=== PATIENT | male | born 1955 | race Caucasian/White ===

== ENCOUNTER 2025-02-15 15:14 | Outpatient (CLI) | payer MEDICARE, OTHER, SELFPAY ==
--- OUTSIDE RECORDS SUMMARY | 2025-02-15 09:50 | XMS_ITS | Encounter Summary ---
Author Organization [facility] Healthcare Address [address] [place] [address] Care Team Providers Care Cook Seafood Name Role Phone Kim Mendoza DPT Unavailable [phone] Iglesia Harrell MD Primary Care Provide r Jossie Brown MD Primary Care Provider [phone] Tara Sanchez NP Primary Care Provider [phone] Encounter Details Date Type Department Care Team (Late st Contact Info) Description 03/08/2019 [address]ation [facility] Case Management [address] [place] [address] Georgina Shaw RN Social History Tobacco Use Types Packs/Day Years Used Date Smoking Tobacco: Never Smokeless Tobacco: Never Alcohol Use Standard Drinks/Week Comments No 0 (1 standard drink = 0.6 oz pur e alcohol) Sex and Gender Information Value Date Recorded Sex Assigned at Not on file 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 Author CCM Chronic Pain Care Plan Chronic Care Management No Sherry Mcgregor RN Note: Problem: Chronic Pain Goals: 1. Minimize further functional decline 2. Maximize quality of life 3. Control pain Strategies: - Activity/exercise program recommendation - Conservative stepwise pain medicine strategy with multi-disciplinary approach - Recommend healthy lifestyle strategies and compensatory methods as needed Reduce the likelihood of falling Lifestyle No Sherry Mcgregor, RN Note: Below are four things you can do to prevent falls: 1. Begin an exercise program to improve your leg strength & balance 2. Ask your doctor or pharmacist to review your medicines 3. Get annual eye check-ups & update your eyeglasses 4. Make your home safer by: Removing clutter & tripping hazards Putting railings on all stairs & adding grab bars in the bathroom Having good lighting, especially on stairs Contact your local community or [facility] for information on exercise, fall prevention programs, or options for improving home safety. documented as of this encounter Visit Diagnoses Not on filedocumented in this encounter Care Teams Cook Seafood Relationship Specialty Start Date End Date Iglesia Harrell MD [address] [place] [address] PCP - General Emergency Medicine 09/21/18 11/29/19 Jossie Brown MD [address] [facility] [address] [place] [address] PCP - General Family Medicine 11/30/19 02/13/25 Tara Sanchez NP [address] [address] PCP - General Family Medicine 02/14/25 Kim Mendoza DPT [address] [id number] [address] [place] [address] Fellow Physical Therapy 05/08/18 documented as of this encounter
--- OUTSIDE RECORDS SUMMARY | 2025-02-15 09:50 | XMS_ITS | Clinical Summary ---
Author Organization [facility] Address [facility] [place] [address] Care Team Providers Care Slitting Machine Operator Helper Name Role Phone Jossie Brown MD Primary Care Provider [phone] Clark Cruz MD Unavailable [phone] Allergies Active Allergy Reactions Criticality Noted Date Comments Alfuzosin Shortness of Breath High 04/27/2018 Doxazosin Shortness of Breath High 04/17/2018 Finasteride Shortness of Breath High 05/01/2018 Nasal congestion, heart palpitations Meperidine Other (see comment) High 06/08/2020 Reaction: Blood pressure Sulfa Antibiotics Shortness of Breath High 8 Flomax Medications temazepam 30 MG capsuleIndicat ions:Insomnia Take 30 mg by mouth daily. Indications: Trouble Sleeping 0 Active cholecalcifero l (VITAMIN D-[address]) 25 MCG (1000 UT) Tab tabletIndicati ons:Vitamin D Deficiency Take 1,000 Units by mouth daily. Indications: Vitamin D Deficiency 0 Active docusate sodium 100 MG capsuleIndicat ions:Constipat ion Take 100 mg by mouth 2 (two) times daily as needed for Constipation. Indications: Constipation 9 Active aspirin 81 MG chewable tablet [The details of the medication are not available because there are pending changes by a home health clinician.] 90 tablet 1 0 Active Additional Information Patient taking differently:81 mg Oral Daily,Indications: Anticoagulant Therapy, Reported on 06/19/2020 traMADol 50 MG tabletIndicati ons:Chronic Pain Take 1 tablet (50 mg total) by mouth every 6 (six) hours as needed for Pain. Indications: Chronic Pain 60 tablet 0 Active amitriptyline 25 MG tabletIndicati ons:Neuralgia Take 1 tablet (25 mg total) by mouth nightly at bedtime. Indications: Nerve Pain 0 Active famotidine 10 MG tabletIndicati ons:gerd Take 1 tablet (10 mg total) by mouth 2 (two) times daily. Indications: gerd 30 tablet 0 Active clopidogrel 75 MG tablet Take 1 tablet (75 mg total) by mouth daily. 90 tablet 3 0 Active metoprolol succinate ER 25 MG 24 hr tablet Take 1 tablet (25 mg total) by mouth daily. 90 tablet 3 0 Active pravastatin 10 MG tablet Take 1 tablet (10 mg total) by mouth nightly at bedtime. 90 tablet 3 0 Active Active Problems Problem Noted Date Diagnosed Date STEMI (ST elevation myocardi al infarction) ([facility]) 06/08/2020 STEMI involving right coronary artery ([facility]) 06/08/2020 Epididymoorchitis 03/13/2019 H/O urethral stricture 02/12/2019 Overview (06/08/2020): Added automatically from request for surgery [id number] Prostatitis 02/12/2019 Overview (06/08/2020): Added automatically from request for surgery [id number] Non-recurrent bilateral ingu inal hernia without obstruction or gangrene 04/08/2018 Acute renal failure 09/29/2017 Other hyperlipidemia 09/29/2017 Overview (06/08/2020): Converted unresolved ICD9, potential mismatch. Increased frequency of urination 10/29/2016 Family History Medical History Relation Comments Heart Attack Father Heart Disease Mother Relation Status Comments Father Mother Social History Tobacco Use Types Packs/Day Years Used Date Smoking Tobacco: Never Smokeless Tobacco: Never Alcohol Use Standard Drinks/Week Comments Never 0 (1 standard drink = 0.6 oz pur e alcohol) AUDIT-C Answer Date Recorded Frequency of Alcohol Consumption Never 06/08/2020 Average Number of Drinks Not on file 020 Frequency of Binge Drinking Not on file 05/18 Sex and Gender Information Value Date Recorded Sex Assigned at Not on file Legal Sex Male 1:49 PM CDT Gender Identity Not on file Sexual Orientation Not on file Last Filed Vital Signs Vital Sign Reading Time Taken Comments Blood Pressure 136/84 07/20/2020 11:53 AM CDT Pulse 78 07/20/2020 11:53 AM CDT Temperature 36.3 C (97.4 F) 07/04/2020 10:00 AM CDT Respiratory Rate 18 07/12/2020 11:46 AM CDT Oxygen Saturation 98% 07/20/2020 11:53 AM CDT Inhaled Oxygen Concentration - - Weight 79.8 kg (176 lb) 07/20/2020 11:53 AM CDT Height 180.3 cm (5' 11 ) 07/20/2020 11:53 AM CDT Body Mass Index 24.55 07/20/2020 11:53 AM CDT Plan of Treatment Health Maintenance Due Date Last Done Comments ASCVD Statin 1954 Colorectal Cancer Screening Colonoscopy (10 Years) 1954 Pneumococcal Vaccine: 65+ Ye ars (1 of 2 - PCV) 1960 Hepatitis C 1972 DTaP, Tdap and Td Vaccines ( 1 - Tdap) 1973 Zoster Vaccines (1 of 2) 2004 RSV Immunization or 60+ Years (1 - Risk 60-74 years 1-dose series) 2014 Annual Medicare Wellness Visit 2019 ASCVD LDL 06/09/2021 06/09/2020 COVID-19 Vaccine (1 - 2023-2 5 season) 2024 Influenza Adult (#1) 2024 08/17/2019 Meningococcal B Vaccine Aged Out No l onger eligible based on patient's age to complete this topic Meningococcal Vaccine Aged Out No lexie robel eligible based on patient's age to complete this topic RSV Immunizations Under 20 Months Aged Out No longer eligible based on patient's age to complete this topic Medical Devices Implanted Type Area Batch Analyst Device Identifier Shelf Expiration Date Model / Serial / Lot Wire Sut 18in Myowr2 7;.5 [place]; Ccs-1 Mfil; Cnv - [id number] Implanted:Qty: 1 on 06/14/2020 by Bobby Gonzalez RNFA at [facility] Wire N/A: Sternum [employer] 11/17/2024 [id number] / / [id number] Description:1 WIRE USED Suture Sternotomy Kit - [id number] Implanted:Qty: 1 on 06/14/2020 by Bobby Gonzalez RNFA at [facility] Wire N/A: Sternum [employer] 08/17/2024 [id number] / / [id number] Description:6 WIRES USED Procedures Procedure Name Priority Date/Time Associated Diagnosis Comments LIPID PANEL Routine 06/09/2020 5:55 AM CDT from Last 3 Months or Most Recently Relevant to Health Maintenance Results * (ABNORMAL) LIPID PANEL (06/09/2020 5:55 AM CDT) CHOLESTEROL 193 <200 MG/DL 06/09/2020 6:37 AM CDT [facility] TRIGLYCERIDES 145 <150 MG/DL 06/09/2020 6:37 AM CDT [facility] HDL 34(L) >40.0 MG/DL 06/09/2020 6:37 AM CDT [facility] LDL (CALCULATED) 130(H) <100 MG/DL 06/09/2020 6:37 AM CDT [facility] NON HDL CHOLESTEROL 159(H) <130 MG/DL 06/09/2020 6:37 AM CDT [facility] CHOL/HDL RATIO 5.7(H) 0.0 - 4.5 06/09/2020 6:37 AM CDT [facility] VLDL CALCULATION 29 5 - 55 MG/DL 06/09/2020 6:37 AM CDT [facility] LIPID INTERPRETATION 06/09/2020 6:37 AM T [facility] Comment: [facility] CONCENSUS REPORT RECOMMENDATIONS: ADULT CHILD LOW RISK: CHOLESTEROL <200 <170 TRIGLYCERIDE <150 --- HDL >=60 --- LDL <100 <110 BORDERLINE: CHOLESTEROL 200-239 170-199 TRIGLYCERIDE 150-199 --- HDL 40-59 --- LDL 100-159 110-129 HIGH RISK: CHOLESTEROL >=240 >=200 TRIGLYCERIDE >=200 --- HDL <40 --- LDL >=160 >=130 06/09/2020 5:55 AM CDT [place] Louis PA-C LABORATORY Final Result [facility] [address] [place] [address], from Last 3 Months or Most Recently Relevant to Health Maintenance Insurance MEDICARE GENERIC - COMMERCIAL on file MEDICARE Advance Directives Documents on File Type Date Recorded Patient Hop Picker Expl anation Advance Directives and Living Will 06/15/2020 7:09 AM 06-12-20 Signed POA f or Health Care * Full Code (Latest Code Status on File) Date Activated Date Inactivated Comments 06/19/2020 3:25 PM * Full Code Date Activated Date Inactivated Comments 06/08/2020 12:47 PM 06/18/2020 1:07 PM Care Teams Slitting Machine Operator Helper Relationship Specialty Start Date End Date Jossie Brown MD [address] [place] [id number] PCP - General FAMILY PRACTICE 07/18/20 Clark Cruz MD [address] [address] Consulting Physician INTERVENTIONAL CARDIOLOGY 07/18/20
--- OUTSIDE RECORDS SUMMARY | 2025-02-15 09:50 | XMS_ITS | Encounter Summary ---
Author Organization [facility] Healthcare Address [address] [place] [address] Care Team Providers Care Flower Grader Name Role Phone Kim Mendoza DPT Unavailable [phone] Traa Sanchez NP Primary Care Provider [phone] Reason for Visit * Reason Comments Follow-up 6 mo f/u Hypertension Bradycardia Encounter Details Date Type Department Care Team (Late st Contact Info) Description 02/14/2025 10:30 AM CDT Office Visit [facility] Cardiology [address] [place] [address] Martha Cooper MD [facility] [address] Hx of CABG (Primary Dx); Essential hypertension; Dyslipidemia Social History Tobacco Use Types Packs/Day Years Used Date Smoking Tobacco: Never Smokeless Tobacco: Never Alcohol Use Standard Drinks/Week Comments No 0 (1 standard drink = 0.6 oz pur e alcohol) Sex and Gender Information Value Date Recorded Sex Assigned at Not on file 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 Gender Identity Not on file Sexual Orientation Not on file documented as of this encounter Last Filed Vital Signs Vital Sign Reading Time Taken Comments Blood Pressure 118/74 02/14/2025 10:44 AM CDT Pulse 60 02/14/2025 10:44 AM CDT Temperature - - Respiratory Rate - - Oxygen Saturation 97% 02/14/2025 10:44 AM CDT Inhaled Oxygen Concentration - - Weight 87.2 kg (192 lb 4.8 oz) 02/14/2025 10:44 AM CDT Height 180.3 cm (5' 11 ) 02/14/2025 10:44 AM CDT Body Mass Index 26.82 02/14/2025 10:44 AM CDT documented in this encounter Progress Notes * Martha Cooper MD - 02/14/2025 10:30 AM CDT [facility] DATE OF VISIT: 02/14/2025 CHIEF COMPLAINT Chief Complaint Patient presents with Follow-up 6 mo f/u Hypertension Bradycardia HPI Rashaad Santoyo is a 69 y.o. male with past medical history of STEMI 2019 and presented to [facility] andwas found to have severe multivessel coronary disease involving LAD, RCA and left circumflex artery. He had CABGx5 2019 at [facility] with ANTOINE to mid LAD, SVG to distal RCA, SVG to D1, SVG to OM1 and left radial artery to distal left circumflex artery by Dr. Tino Mims. Also history of hypertension, hyperlipidemia, CKD. He does have history of chronic prostatitis with pelvic floor dysfunction. Comes to establish care. He moved from [place] to here. Denies chest pain, shortness of breath, lowerextremity edema, palpitations dizziness or syncope. Never smoked cigarettes and does not drink alcohol. He used to follow up with his fashion photographer in [place] every 6 months. He does go to the gym frequently 4 to 5 times a week. He states I can do a lot of work without any symptoms. 02/14/2025-returns for follow-up appointment. Denies chest pain, shortness of breath, palpitations,dizziness, syncope, lower extremity edema. He has been physically active doing housework. He statesthat he is very active. And he states that he feels very well. MEDICAL HISTORY Past Medical History: Diagnosis Date BPH (benign prostatic hyperplasia) Bradycardia Coronary artery disease Inguinal hernia Personal history of other endocrine, nutritional and metabolic disease History of hypercholesterolemia - (Added by TW Conv) PONV (postoperative nausea and vomiting) Prostatitis Prostatitis 02/12/2019 Added automatically from request for surgery [id number] Urinary frequency Past Surgical History: Procedure Laterality Date CARPAL TUNNEL RELEASE Bilateral 1998 X2 COLONOSCOPY KNEE ARTHROSCOPY X2 SC TRURL ELECTROSURG RESCJ PROSTATE BLEED COMPLETE 2014 Transurethral Resection Of Prostate (TURP) - (Added by TW Conv) TRANSURETHRAL RESECTION OF PROSTATE 2017 Social History Tobacco Use Smoking status: Never Smokeless tobacco: Never Substance and Sexual Activity Drug use: No Sexual activity: None Alcohol Use: Not At Risk (06/08/2020) Received from [facility] AUDIT-C Frequency of Alcohol Consumption: Never Average Number of Drinks: Not on file Frequency of Binge Drinking: Not on file Family History Problem Relation Age of Onset Heart attack Mother Heart attack Father MEDICATIONS Current Outpatient Medications Medication Sig Dispense Refill amitriptyline (ELAVIL) 10 mg tablet TAKE 1 TABLET BY MOUTH NIGHTLY 30 tablet 2 amitriptyline (ELAVIL) 25 mg tablet Take 1 tablet (25 mg total) by mouth nightly 30 tablet 2 cholecalciferol (VITAMIN D-3) 1,000 unit tablet Take 1,000 Units by mouth every morning clopidogreL (PLAVIX) 75 mg tablet Take 75 mg by mouth daily diazePAM (VALIUM) 10 mg tablet COMPOUND INTO VALIUM 10 MG RECTAL SUPPOSITORY, ADD IN PREDNISONE 5 MG INTO THE SAME RECTAL SUPPOSITORY, USE ONE SUPPOSITORY AT BEDTIME 30 tablet 0 docusate sodium (COLACE) 100 mg capsule Take 1 capsule (100 mg total) by mouth 2 (two) times a day as needed for constipation 60 capsule 0 famotidine (PEPCID) 20 mg tablet Take 20 mg by mouth daily methocarbamoL (ROBAXIN) 500 mg tablet BID/PRN, take in morning and afternoon (do not take after 5 PM) (Patient not taking: Reported on 08/10/2020) 60 tablet 1 metoprolol XL (TOPROL-XL) 25 mg extended release tablet Take 25 mg by mouth daily omeprazole (PriLOSEC) 20 mg capsule Take 20 mg by mouth every morning oxyCODONE (ROXICODONE) 5 mg immediate release tablet Take 1 tablet (5 mg total) by mouth every 4 (four) hours as needed for pain (Patient not taking: Reported on 10/28/2019) 10 tablet 0 pravastatin (PRAVACHOL) 10 mg tablet Take 10 mg by mouth nightly at bedtime. predniSONE (DELTASONE) 5 mg tablet COMPOUND INTO PREDNISONE 5 MG RECTAL SUPPOSITORY, ADD IN VALIUM 10 MG INTO THE SAME SUPPOSITORY, USE ONE RECTAL SUPPOSITORY PER NIGHT (Patient not taking: Reported on 08/10/2020) 30 tablet 0 temazepam (RESTORIL) 30 mg capsule Take by mouth daily traMADoL (ULTRAM) 50 mg tablet Take 1 tablet (50 mg total) by mouth 4 (four) times a day as needed for pain 120 tablet 0 No current facility-administered medications for this visit. ALLERGIES Allergies Allergen Reactions Alfuzosin Shortness of breath Doxazosin Shortness of breath Finasteride Shortness of breath Nasal congestion, heart palpitations Meperidine Hypotension Reaction: Blood pressure Sulfa (Sulfonamide Antibiotics) Shortness of breath Flomax REVIEW OF SYSTEMS Review of Systems Constitutional: Negative for chills, fever and malaise/fatigue. HENT: Negative for congestion and sore throat. Eyes: Negative for blurred vision and double vision. Cardiovascular: Negative for chest pain, claudication, dyspnea on exertion, leg swelling, near-syncope, orthopnea, palpitations, paroxysmal nocturnal dyspnea and syncope. Respiratory: Negative for cough, hemoptysis, shortness of breath, snoring, sputum production and wheezing. Endocrine: Negative for cold intolerance and polyuria. Hematologic/Lymphatic: Negative for bleeding problem. Does not bruise/bleed easily. Skin: Negative for itching and rash. Musculoskeletal: Negative for back pain, joint pain and joint swelling. Gastrointestinal: Negative for abdominal pain, diarrhea, nausea and vomiting. Genitourinary: Negative for dysuria, frequency and hematuria. Neurological: Negative for focal weakness, headaches and light-headedness. Psychiatric/Behavioral: Negative for depression. The patient is not nervous/anxious. Allergic/Immunologic: Negative for environmental allergies and hives. PHYSICAL EXAM Vitals BP 118/74 (BP Location: Left arm, Patient Position: Sitting) Pulse 60 Ht 180.3 cm (5' 11 ) Wt 87.2 kg (192 lb 4.8 oz) SpO2 97% BMI 26.82 kg/m?? Body mass index is 26.82 kg/m??. Physical Exam Constitutional: General: He is not in acute distress. Appearance: He is well-developed. HENT: Head: Normocephalic and atraumatic. Right Ear: External ear normal. Left Ear: External ear normal. Eyes: General: No scleral icterus. Left eye: No discharge. Conjunctiva/sclera: Conjunctivae normal. Neck: Thyroid: No thyromegaly. Cardiovascular: Rate and Rhythm: Normal rate and regular rhythm. Heart sounds: Normal heart sounds. No murmur heard. No friction rub. No gallop. Pulmonary: Effort: Pulmonary effort is normal. No respiratory distress. Breath sounds: Normal breath sounds. No wheezing or rales. Chest: Chest wall: No tenderness. Abdominal: General: There is no distension. Palpations: Abdomen is soft. Tenderness: There is no abdominal tenderness. Musculoskeletal: General: No tenderness or deformity. Cervical back: Normal range of motion and neck supple. Right lower leg: No edema. Left lower leg: No edema. Skin: General: Skin is warm. Findings: No erythema or rash. Neurological: Mental Status: He is alert and oriented to person, place, and time. Motor: No abnormal muscle tone. Psychiatric: Mood and Affect: Mood normal. LABS AND OTHER DIAGNOSTIC TESTS Lab Results Component Value Date WBC 11.8 (H) 08/30/2019 HGB 12.9 (L) 08/30/2019 HCT 38.6 (L) 08/30/2019 MCV 90.8 08/30/2019 Chemistry Component Value Date/Time SODIUM 137 08/30/2019 2327 POTASSIUM 4.3 08/30/2019 2327 CHLORIDE 105 08/30/2019 2327 CO2 24 08/30/2019 2327 BUNSER 17 08/30/2019 2327 CREATININE 1.33 (H) 08/30/2019 2327 GLUCOSE 172 08/30/2019 2327 Component Value Date/Time CALCIUM 8.4 (L) 08/30/2019 2327 ALKPHOS 100 07/22/2017 1149 AST 24 07/22/2017 1149 ALT 26 07/22/2017 1149 BILITOT 0.3 07/22/2017 1149 No results found for: CHOL No results found for: HDL No results found for: LDLCALC No results found for: TRIG No results found for: CHOLHDL Cardiac catheterization at [facility] 2019 severe multivessel coronary artery disease involving LAD, left circumflex artery and right coronary artery. EKG August 16, 2024 sinus rhythm, left axis deviation, septal Q-waves, poor R-wave progression, LVH, ST T changes that could represent strain pattern from LVH or ischemia Echo at [facility] 2019 ejection fraction 50-55%, hypokinetic anterior, anteroseptal, inferoseptal, inferior cueto. Echo August 2024.Normal left ventricular systolic function. No focal wall motion abnormalities. Normal left ventricular size. Mild concentric left ventricular hypertrophy. Impaired diastolic relaxation Grade I. Ejection fraction is measured at 62 %. Global Longitudinal Strain is -18 %. GLS is borderline. Mild mitral valve regurgitation. No evidence of hemodynamically significant aortic stenosis by Doppler. Aortic cusps appear mildly sclerotic. Trileaflet aortic valve. Trace aortic valve regurgitation. Estimated peak RVSP is 29 mmHg. Mild tricuspid regurgitation. ASSESSMENT Diagnoses and all orders for this visit: Hx of CABG (Primary) Essential hypertension Dyslipidemia PLAN/RECOMMENDATIONS In regards to history of CABG 2020 at [facility] with ANTOINE to mid LAD,SVG to distal RCA, SVG to D1, SVG to OM1 and left radial artery to distal left circumflex artery. Overall he is doing very well. Denies any anginal symptoms. Continue aspirin. Continue Repatha. Echo done August 2024 shows normal LV systolic function. In regards to hypertension, blood pressure is controlled today 118/74.. Continue metoprolol, amlodipine. In regards to hyperlipidemia lipid panel done today February 14, 2025 LDL 26, HDL 27 triglycerides 153. and total cholesterol less than 100. Continue Repatha. Follow up in the office in in 6 months. Martha Cooper MD documented in this encounter Miscellaneous Notes * Addendum Note - Ashley Ac MA - 02/14/2025 10:30 AM CDTAddended by: ASHLEY AC on: 02/14/2025 12:03 PM Modules accepted: Orders documented in this encounter Plan of Treatment Not on file documented as of this encounter Goals Goal Patient Goal Type Associated Problems Recent Progress Patient-Stated? Author CCM Chronic Pain Care Plan Chronic Care Management No Sherry Mcgregor, RN Note: Problem: Chronic Pain Goals: 1. [...] on stairs Contact your local community or [facility] for information on exercise, fall prevention programs, or options for improving home safety. documented as of this encounter Procedures Procedure Name Priority Date/Time Associated Diagnosis Comments POCT LIPID PANEL Routine 02/14/2025 12:0 2 PM CDT Dyslipidemia documented in this encounter Results * POCT lipid panel (02/14/2025 12:02 PM CDT) Cholesterol, POC 104 mg/dL Comment:GLU = 155 HDL, POC 27 mg/dL Triglycerides, POC 253 mg/dL LDL Cholesterol POC 26 mg/dL Chol/HDL Ratio, POC 1.0 Non-HDL Cholesterol, POC 77 mg/dL Cholesterol Total, POC 104 mg/dL Capillary blood 02/14/2025 1 2:02 PM CDT Martha Cooper MD POINT OF CARE TEST O RDERABLES Final Result documented in this encounter Visit Diagnoses Diagnosis Hx of CABG- Primary Postsurgical aortocoronary bypass status Essential hypertension Unspecified essential hypertension Dyslipidemia Other and unspecified hyperlipidemia documented in this encounter Care Teams Flower Grader Relationship Specialty Start Date End Date Tara Sanchez NP [address] [address] PCP - General Family Medicine 02/14/25 Kim Mendoza DPT [address] [facility] [address] [place] [address] Fellow Physical Therapy 05/08/18 documented as of this encounter
--- OUTSIDE RECORDS SUMMARY | 2025-02-15 09:51 | XMS_ITS | Clinical Summary ---
Author Organization [facility] Address [address] [place] [address] Care Team Providers Care Filtration Plant Mechanic Name Role Phone Kim Mendoza DPT Unavailable [phone] Tara Sanchez NP Primary Care Provider [phone] Allergies Active Allergy Reactions Criticality Noted Date Comments Alfuzosin Shortness of breath High 04/27/2018 Doxazosin Shortness of breath High 04/17/2018 Finasteride Shortness of breath High 05/01/2018 Nasal congestion, heart palpitations Meperidine Hypotension High Reaction: Blood pressure Sulfa (Sulfonamide Antibiotics) Shortness of breath High 04/17/2018 Flomax Medications cholecalciferol (VITAMIN D-3) 1,000 unit tabletIndicatio ns:Vitamin D Deficiency Take 1 tablet (1,000 Units total) by mouth every morning Active temazepam (RESTORIL) 30 mg capsule Take by mouth daily 01/17/2020 Active metoprolol tartrate (LOPRESSOR) 50 mg immediate release tablet Take 1 tablet (50 mg total) by mouth 2 (two) times a day Active amLODIPine (NORVASC) 2.5 mg tablet Take 1 tablet (2.5 mg total) by mouth daily 07/27/2024 Active psyllium 0.52 gram capsule Take 1 capsule (0.52 g total) by mouth daily Active vit A/C/E ac/ZnOx/cupric oxide (EYE VITAMIN AND MINERALS ORAL) Take by mouth A ctive Repatha SureClick 140 mg/mL pen injector INJECT THE CONTENTS OF ONE PEN UNDER THE SKIN EVERY 2 WEEKS 07/20/2024 Active aspirin 81 mg enteric coated tablet Take 1 tablet (81 mg total) by mouth daily Active Active Problems Problem Noted Date Diagnosed Date Hx of CABG 08/16/2024 Essential hypertension 08/16/2024 Dyslipidemia 08/16/2024 Other anterior urethral stricture, male, anterio r 07/28/2019 Overview (07/28/2019): Added automatically from request for surgery [id number] Epididymoorchitis 03/13/2019 H/O: urethral stricture 02/24/2019 Overview (02/24/2019): Added automatically from request for surgery [id number] H/O urethral stricture 02/12/2019 Overview (02/12/2019): Added automatically from request for surgery [id number] Prostatitis 02/12/2019 Overview (02/12/2019): Added automatically from request for surgery [id number] Non-recurrent bilateral ingu inal hernia without obstruction or gangrene 04/08/2018 Increased frequency of urination 10/29/2016 Encounters Date Type Department Care Team Description 02/14/2025 10:30 AM CDT Office Visit [facility] Cardiology [address] [place] [address] Martha Cooper MD Hx of CABG (Primary Dx); Essential hypertension; Dyslipidemia from Last 3 Months Immunizations Immunization Administration Dates Next Due Influenza, Unspecified 08/17/2019 Surgical History Surgery Date Site/Laterality Comments DE TRURL ELECTROSURG RESCJ PROSTATE BLEED COMPLETE 11/17/2014 - 11/16/2015 Transurethral Resection Of Prostate (TURP) - (Added by TW Conv) TRANSURETHRAL RESECTION OF PROSTATE 11/17/2016 - 11/16/2017 CARPAL TUNNEL RELEASE 11/17/1998 - 11/16/1999 Bilateral X2 KNEE ARTHROSCOPY X2 COLONOSCOPY Medical History Medical History Date Comments Personal history of other endocrine, nutritional and metabolic disease History of hypercholesterole kizzy - (Added by TW Conv) Urinary frequency Prostatitis Inguinal hernia PONV (postoperative nausea a nd vomiting) BPH (benign prostatic hyperplasia) Prostatitis 02/12/2019 Added automatica lly from request for surgery [id number] Coronary artery disease Bradycardia Family History Medical History Relation Name Comments Heart attack Father Heart attack Mother Relation Name Status Comments Father Mother Social History Tobacco Use Types Packs/Day Years Used Date Smoking Tobacco: Never Smokeless Tobacco: Never Alcohol Use Standard Drinks/Week Comments No 0 (1 standard drink = 0.6 oz pur e alcohol) Sex and Gender Information Value Date Recorded Sex Assigned at Not on file Legal Sex Male 6:54 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 Gender Identity Not on file Sexual Orientation Not on file Obstetrics History Last Filed Vital Signs Vital Sign Reading Time Taken Comments Blood Pressure 118/74 02/14/2025 10:44 AM CDT Pulse 60 02/14/2025 10:44 AM CDT Temperature 37.1 C (98.8 F) 09/01/2019 7:49 AM CDT Respiratory Rate 18 09/01/2019 7:49 AM CDT Oxygen Saturation 97% 02/14/2025 10:44 AM CDT Inhaled Oxygen Concentration - - Weight 87.2 kg (192 lb 4.8 oz) 02/14/2025 10:44 AM CDT Height 180.3 cm (5' 11 ) 02/14/2025 10:44 AM CDT Body Mass Index 26.82 02/14/2025 10:44 AM CDT Plan of Treatment Health Maintenance Due Date Last Done Comments Colon Cancer Screening-Colonoscopy 1954 Depression Screening 1954 Hepatitis C Screening 1954 DTaP/Tdap/Td Vaccine (1 - Tdap) 1965 Hepatitis B Screening 1972 Pneumococcal vaccine 65+ (1 of 1 - PCV) 2004 Zoster Vaccine (1 of 2) 2004 Well Visit 65+ 2019 Fall Risk Assessment 01/21/2020 01/20/2019 Influenza Vaccine (#1) 2024 08/18/2020, 2018 Prostate Cancer Screening-PSA Discontinued , 07/23/2019, 04/16/2018 Goals Goal Patient Goal Type Associated Problems Recent Progress Patient-Stated? Author CCM Chronic Pain Care Plan Chronic Care Management Sherry Guy, RN Note: Problem: Chronic Pain Goals: 1. Minimize further functional decline 2. Maximize quality of life 3. Control pain Strategies: - Activity/exercise program recommendation - Conservative stepwise pain medicine strategy with multi-disciplinary approach - Recommend healthy lifestyle strategies and compensatory methods as needed Reduce the likelihood of falling Lifestyle Sherry Guy RN Note: Below are four things you [...] on stairs Contact your local community or [facility] for information on exercise, fall prevention programs, or options for improving home safety. Procedures Procedure Name Priority Date/Time Associated Diagnosis Comments POCT LIPID PANEL Routine 02/14/2025 12:0 2 PM CDT Dyslipidemia PSA SCREEN Routine 10/12/2019 11:00 AM SUPERVISOR 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 Screening PSA (prostate specific antigen) from Last 3 Months or Most Recently Relevant to Health Maintenance Results * POCT lipid panel (02/14/2025 12:02 PM CDT) Cholesterol, POC 104 mg/dL Comment:GLU = 155 HDL, POC 27 mg/dL Triglycerides, POC 253 mg/dL LDL Cholesterol POC 26 mg/dL Chol/HDL Ratio, POC 1.0 Non-HDL Cholesterol, POC 77 mg/dL Cholesterol Total, POC 104 mg/dL Capillary blood 02/14/2025 1 2:02 PM CDT us Martha Cooper MD POINT OF CARE TEST O RDERABLES Final Result * PSA screen (10/12/2019 11:00 AM SUPERVISOR 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) PSA-Total 0.35 <=5.40 ng/mL BHAKTI CONNER Comment: Interpretive Data AGE SEX REFERENCE INTERVAL 0 minutes-150 years Female None 0 minutes-49 years Male None 50-59 years Male 0-3.90 60-69 years Male 0-5.40 70-79 years Male 0-6.20 80-150 years Male 0-6.20 Current interpretive data last revised 2018. Testing performed by: [facility], [facility], [place]., [address] Blood specimen (specimen) 10/12/2019 11:00 AM SUPERVISOR 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 10/12/2019 11:49 AM SUPERVISOR 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 Lorene Lyon NP LAB BLOOD ORDERABLES Final Result BHAKTI [facility] [address] [facility]. [place] [address] from Last 3 Months or Most Recently Relevant to [place] [address] COMMERCIAL GENERIC MEDICARE [employer] [place] [id number] [employer] MEDICARE HMO Advance Directives For more information, please contact: [phone] * Full Code (Latest Code Status on File) Date Activated Date Inactivated Comments 08/30/2019 5:59 PM 09/01/2019 3:52 PM * Full Code Date Activated Date Inactivated Comments 03/11/2019 12:12 PM 03/13/2019 6:12 PM * Full Code Date Activated Date Inactivated Comments 03/05/2019 4:31 PM 03/06/2019 4:04 PM Care Teams Filtration Plant Mechanic Relationship Specialty Start Date End Date Tara Sanchez NP [address] [address] [place] [id number] PCP - General Family Medicine 02/14/25 Kim Mendoza DPT [address] [place] [address] Fellow Physical Therapy 05/08/18
--- OUTSIDE RECORDS SUMMARY | 2025-02-15 09:51 | XMS_ITS | Referral Summary ---
Author Organization [facility] Address [address] [place] [address] Care Team Providers Care Geophysical Operator Name Role Phone Kim Mendoza DPT Unavailable [phone] Tara Sanchez NP Primary Care Provider [phone] Encounters Date Type Department Care Team Description 02/14/2025 10:30 AM CDT Office Visit [facility] Medical Group Cardiology [address] [place] [address] Martha Cooper MD Hx of CABG (Primary Dx); Essential hypertension; Dyslipidemia from Last 3 Months Allergies Active Allergy Reactions Criticality Noted Date [...] (07/28/2019): Added automatically from request for surgery [id number] Epididymoorchitis 03/13/2019 H/O: urethral stricture 02/24/2019 Overview (02/24/2019): Added automatically from request for surgery [id number] H/O urethral stricture 02/12/2019 Overview (02/12/2019): Added automatically from request for surgery [id number] Prostatitis 02/12/2019 Overview (02/12/2019): Added automatically from request for surgery [id number] Non-recurrent bilateral ingu inal hernia without obstruction or gangrene 04/08/2018 Increased frequency of urination 10/29/2016 Immunizations Immunization Administration Dates Next Due Influenza, Unspecified 08/17/2019 Social History Tobacco Use Types Packs/Day Years Used Date Smoking Tobacco: Never Smokeless Tobacco: Never Alcohol Use Standard Drinks/Week Comments No 0 (1 standard drink = 0.6 oz pur e alcohol) Sex and Gender Information Value Date Recorded Sex Assigned at Not on file Legal Sex Male 6:54 PM CLINICAL SERVICES MANAGER Gender Identity Not on file Sexual Orientation [...] 02/14/2025 10:44 AM CDT Plan of Treatment Not on file Goals Goal Patient Goal Type Associated Problems [...] Reduce the likelihood of falling Lifestyle Sherry Guy, RN Note: Below are four things you [...] on stairs Contact your local community or senior center for information on exercise, fall prevention programs, or options for improving home safety. Procedures Procedure Name Priority Date/Time Associated Diagnosis Comments POCT LIPID PANEL Routine 02/14/2025 12:0 2 PM CDT Dyslipidemia PSA SCREEN Routine 10/12/2019 11:00 AM CLINICAL SERVICES MANAGER Screening PSA (prostate specific antigen) from Last [...] Result * PSA screen (10/12/2019 11:00 AM CLINICAL SERVICES MANAGER) PSA-Total 0.35 <=5.40 ng/mL BHAKTI GUZMANCH Comment: Interpretive Data AGE SEX REFERENCE INTERVAL 0 minutes-150 years Female None 0 minutes-49 years Male None 50-59 years Male 0-3.90 60-69 years Male 0-5.40 70-79 years Male 0-6.20 80-150 years Male 0-6.20 Current interpretive data last revised 2018. Testing performed by: [facility], [address] [place] [address]., [id number] Blood specimen (specimen) 10/12/2019 11:00 AM CLINICAL SERVICES MANAGER 10/12/2019 11:49 AM CLINICAL SERVICES MANAGER Lorene Lyon NP LAB BLOOD ORDERABLES Final Result [facility] [address] [facility]. Department [place] [address] from Last 3 Months or Most Recently Relevant to Health Maintenance Insurance [address] [place] [address] COMMERCIAL GENERIC MEDICARE [employer] [place] [facility] MEDICARE O Advance Directives For more information, please contact: [phone] * Full Code (Latest Code Status on File) Date Activated Date Inactivated Comments 08/30/2019 5:59 PM 09/01/2019 3:52 PM * Full Code Date Activated Date Inactivated Comments 03/11/2019 12:12 PM 03/13/2019 6:12 PM * Full Code Date Activated Date Inactivated Comments 03/05/2019 4:31 PM 03/06/2019 4:04 PM Care Teams Geophysical Operator Relationship Specialty Start Date End Date Tara Sanchez NP [address] [address] PCP - General Family Medicine 02/14/25 Kim Mendoza DPT [address] [place] [address] Fellow Physical Therapy 05/08/18
--- OUTSIDE RECORDS SUMMARY | 2025-02-15 09:51 | XMS_ITS | Encounter Summary ---
Author Organization [facility] Address [address] [place] [address] Phone Care Team Providers Care Field Geologist Name Role Phone Kim Mendoza DPT Unavailable [phone] Iglesia Harrell MD Primary Care Provide r Jossie Brown MD Primary Care Provider [phone] Tara Sanchez NP Primary Care Provider [phone] Encounter Details Date Type Department Care Team (Late st Contact Info) Description 05/03/2019 Telephone [facility] ([facility]) - [facility] Urology [address] [facility] Advanced Medicine [address]th [place] [address] [place] [address] Mayito Sanchez Social History Tobacco Use Types Packs/Day Years Used Date Smoking Tobacco: Never Smokeless Tobacco: Never Alcohol Use Standard Drinks/Week Comments No 0 (1 standard drink = 0.6 oz pur e alcohol) Sex and Gender Information Value Date Recorded Sex Assigned at Not on file Legal Sex Male 6:54 PM CROCHETER Gender Identity Not on file Sexual Orientation [...] on stairs Contact your local community or [facility] for information on exercise, fall prevention programs, or options for improving home safety. documented as of this encounter Visit Diagnoses Not on filedocumented in this encounter Care Teams Field Geologist Relationship Specialty Start Date End Date Iglesia Harrell MD [address] [place] [address] PCP - General Emergency Medicine 09/21/18 11/29/19 Jossie Brown MD [address] [address] PCP - General Family Medicine 11/30/19 02/13/25 Tara Sanchez NP [address] [address] PCP - General Family Medicine 02/14/25 Kim Mendoza DPT [address] [facility] [address] [place] [address] Fellow Physical Therapy 05/08/18 documented as of this encounter
--- OUTSIDE RECORDS SUMMARY | 2025-02-15 09:51 | XMS_ITS | Encounter Summary ---
Author Organization [facility] Address [address] [place] [address] Phone Care Team Providers Care Compliance Engineer Name Role Phone Kim Mendoza DPT Unavailable [phone] Iglesia Harrell MD Primary Care Provide r Jossie Brown MD Primary Care Provider Tara Sanchez NP Primary Care Provider [phone] Encounter Details Date Type Department Care Team (Late st Contact Info) Description 07/28/2019 Telephone [facility] ([facility]) - [facility] Urology [address] [facility] Advanced Medicine 11th [place] [address] [place] [address] Mayito Sanchez Social History Tobacco Use Types Packs/Day Years Used Date Smoking Tobacco: Never Smokeless Tobacco: Never Alcohol Use Standard Drinks/Week Comments No 0 (1 standard drink = 0.6 oz pur e alcohol) Sex and Gender Information Value Date Recorded Sex Assigned at Not on file Legal Sex Male 6:54 PM DIGITAL RECRUITER Gender Identity Not on file Sexual Orientation [...] on stairs Contact your local community or [facility] for information on exercise, fall prevention programs, or options for improving home safety. documented as of this encounter Visit Diagnoses Not on filedocumented in this encounter Care Teams Compliance Engineer Relationship Specialty Start Date End Date Iglesia Harrell MD [address] [place] [address] PCP - General Emergency Medicine 09/21/18 11/29/19 Jossie Brown MD [address] [facility] [address] [place] [address] PCP - General Family Medicine 11/30/19 02/13/25 Tara Sanchez NP [address] [address] PCP - General Family Medicine 02/14/25 Kim Mendoza DPT [address] [facility] [address] [place] [address] Fellow Physical Therapy 05/08/18 documented as of this encounter
--- OUTSIDE RECORDS SUMMARY | 2025-02-15 09:51 | XMS_ITS | Clinical Summary ---
Author Organization [facility] Address [address] [place] [address] Phone Care Team Providers Care Picu Nurse Name Role Phone Unavailable Primary Care Provider Unavailabl e Medications Medication Sig Dispensed Refills Start Date End Date Status amitriptyline (ELAVIL) 25 MG tablet 1 daily 0 10/14/2017 Active fluticasone (FLONASE) 50 MCG/ACT nasal spray 1 daily 0 10/14/2017 Activ e omeprazole (PriLOSEC) [address] capsule 1 daily 0 09/25/2017 Active oxybutynin (DITROPAN) 5 MG tablet 1qhs 0 10/14/2017 Active budesonide-formoterol (SYMBICORT) 160-4.5 MCG/ACT inhaler 2 puff bid 0 10/14/2017 Active temazepam (RESTORIL) 15 MG capsule 1 qhs prn 0 10/14/2017 Active montelukast (SINGULAIR) 10 MG tablet 1 daily 0 09/29/2017 Active albuterol HFA (PROAIR HFA) 108 (90 Base) MCG/ACT inhaler 2 puffs q4h prn 0 10/14/2017 Acti ve umeclidinium (INCRUSE ELLIPTA) 62.5 MCG/INH inhalation 1 daily 0 09/29/2017 Active Active Problems Problem Noted Date Diagnosed Date Acute kidney failure 09/29/2017 Other hyperlipidemia 09/29/2017 Overview (01/30/2019): Converted unresolved ICD9, potential mismatch. Family History Medical History Relation Comments Heart disease Father Heart disease Mother Relation Status Comments Father Mother Social History Tobacco Use Types Packs/Day Years Used Date Smoking Tobacco: Never Alcohol Use Standard Drinks/Week Comments No 0 (1 standard drink = 0.6 oz pur e alcohol) Sex and Gender Information Value Date Recorded Sex Assigned at Not on file Gender Identity Not on file Sexual Orientation Not on file Last Filed Vital Signs Vital Sign Reading Time Taken Comments Blood Pressure 138/70 09/29/2017 12:01 AM BOILERMAKER INDUSTRIAL BOILERS Pulse 84 09/29/2017 12:01 AM BOILERMAKER INDUSTRIAL BOILERS Temperature - - Respiratory Rate 18 09/29/2017 12:01 AM BOILERMAKER INDUSTRIAL BOILERS Oxygen Saturation - - Inhaled Oxygen Concentration - - Weight 83 kg (183 lb) 09/29/2017 12:01 AM BOILERMAKER INDUSTRIAL BOILERS Height 180.3 cm (5' 11 ) 09/29/2017 12:01 AM BOILERMAKER INDUSTRIAL BOILERS Body Mass Index 25.52 09/29/2017 12:01 AM BOILERMAKER INDUSTRIAL BOILERS Plan of Treatment Not on file
[2025-02-15 10:04] LABS: Alanine Aminotransferase 25 U/L (6-50); Albumin Level 4.1 g/dL (3.5-5.1); Alkaline Phosphatase 90 U/L (38-126); Anion Gap 5 mmol/L (4-12); Aspartate Amino Transferase 26 U/L (17-59); Bilirubin,Total 0.4 mg/dL (0.2-1.3); Blood Urea Nitrogen 19 mg/dL (9-20); Calcium 9.1 mg/dL (8.4-10.2); Carbon Dioxide 30 mmol/L (22-30); Chloride 105 mmol/L (98-107); Cholesterol 115 mg/dL (0-200); Estimated Glomerular Filt Rate 40; Glucose 115 mg/dL (65-110); HDL Direct 35 mg/dL; Potassium 4.6 mmol/L (3.4-5.0); Sodium 140 mmol/L (137-145); Triglycerides 213 mg/dL (<150)
[2025-02-15 10:15] LABS: LDL Cholesterol Direct 42 mg/dL
[2025-02-15 10:34] LABS: Prostate Specific Antigen 0.7 ng/mL (< OR = 4.0)
[2025-02-15 11:59] LABS: Add Urine Microscopic? YES; Appearance Urine Clear (Clear); Bacteria Urine 4+ /hpf; Bilirubin Urine Negative (Negative); Blood Urine Negative (Negative); Color Urine Yellow (Yellow); Glucose Urine UA Negative (Negative); Ketones Urine Negative (Negative); Leukocyte Esterase Ur 2+ LEU/UL (Negative); Nitrate Urine Positive (Negative); Non Pathogenic Casts 0-2; Protein Urine Negative (Negative); RBC Urine 0-2 /hpf (0-2); Specific Grav Ur 1.012 (1.001-1.035); Squamous Epithelial Cell Urine None Seen /hpf (Few); Urobilinogen Urine 0.2 mg/dL (<2.0); WBC Urine 21-50 /hpf (0-3)
--- OUTSIDE RECORDS SUMMARY | 2025-02-15 16:45 | XMS_ITS | Encounter Summary ---
Author Organization [facility] Address [address] [place] [address] Care Team Providers Care Data Warehousing Engineer Name Role Phone Kim Mendoza DPT Unavailable [phone] Tara Sanchez NP Primary Care Provider [phone] Reason for Visit * Reason Comments Follow-up 6 mo f/u Hypertension Bradycardia Encounter Details Date Type Department Care Team (Late st Contact Info) Description 02/14/2025 10:30 AM CDT Office Visit [facility] Medical Group Cardiology [address] [place] [address] Martha Cooper MD [facility] [address] Hx of CABG (Primary Dx); Essential hypertension; Dyslipidemia Social History Tobacco Use Types Packs/Day Years Used Date Smoking Tobacco: Never Smokeless Tobacco: Never Alcohol Use Standard Drinks/Week Comments No 0 (1 standard drink = 0.6 oz pur e alcohol) Sex and Gender Information Value Date Recorded Sex Assigned at Not on file Legal Sex Male 6:54 PM 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 male with past medical history of STEMI 2019 and presented to [facility] andwas found to have severe multivessel coronary disease involving LAD, RCA and left circumflex artery. He had CABGx5 2019 at [facility] with ANTOINE to mid LAD, SVG to distal RCA, SVG to D1, SVG to OM1 and left radial artery to distal left circumflex artery by Dr. Tino Mims. Also history of hypertension, hyperlipidemia, CKD. He does have history of chronic prostatitis with pelvic floor dysfunction. Comes to establish care. He moved from [place] to here. Denies chest pain, shortness of breath, lowerextremity edema, palpitations dizziness or syncope. Never smoked cigarettes and does not drink alcohol. He used to follow up with his fast food worker in [place] every 6 months. He does go to [...] 02/12/2019 Added automatically from request for surgery [id number] Urinary frequency Past Surgical History: Procedure Laterality Date CARPAL TUNNEL RELEASE Bilateral 1998 X2 COLONOSCOPY KNEE ARTHROSCOPY X2 [place] TRURL ELECTROSURG RESCJ PROSTATE BLEED COMPLETE 2014 Transurethral Resection Of Prostate (TURP) - (Added by TW Conv) TRANSURETHRAL RESECTION OF PROSTATE 2017 Social History Tobacco Use Smoking status: Never Smokeless tobacco: Never Substance and Sexual Activity Drug use: No Sexual activity: None Alcohol Use: Not At Risk (06/08/2020) Received from [facility] AUDIT-C Frequency of Alcohol Consumption: Never Average [...] results found for: CHOLHDL Cardiac catheterization at [facility] 2019 severe multivessel coronary artery disease involving LAD, left circumflex artery and right coronary artery. EKG August 16, 2024 sinus rhythm, left axis deviation, septal Q-waves, poor R-wave progression, LVH, ST T changes that could represent strain pattern from LVH or ischemia Echo at [facility] 2019 ejection fraction 50-55%, hypokinetic anterior, [...] on stairs Contact your local community or [facility] for information on exercise, fall prevention programs, [...] hyperlipidemia documented in this encounter Care Teams Data Warehousing Engineer Relationship Specialty Start Date End Date Tara Sanchez NP [address] [address] PCP - General Family Medicine 02/14/25 Kim Mendoza DPT [address] [facility] [address] [place] [address] Fellow Physical Therapy 05/08/18 documented as of this encounter
--- OUTSIDE RECORDS SUMMARY | 2025-02-15 16:45 | XMS_ITS | Clinical Summary ---
Author Organization [facility] Address [facility] [place] [address] Care Team Providers Care Gluing Pressman Name Role Phone Jossie Brown MD Primary Care Provider [phone] Clark Cruz MD Unavailable [phone] Allergies Active Allergy Reactions Criticality Noted Date [...] Date STEMI (ST elevation myocardi al infarction) ([facility]) 06/08/2020 STEMI involving right coronary artery ([facility] H HS/[facility]) 06/08/2020 Epididymoorchitis 03/13/2019 H/O urethral stricture 02/12/2019 Overview (06/08/2020): Added automatically from request for surgery [id number] Prostatitis 02/12/2019 Overview (06/08/2020): Added automatically from request for surgery [id number] Non-recurrent bilateral ingu inal hernia without obstruction [...] this topic Medical Devices Implanted Type Area Horticulture Instructor Device Identifier Shelf Expiration Date Model / Serial / Lot Wire Sut 18in Myowr2 7;.5 [place]; Ccs-1 Mfil; Cnv - [id number] Implanted:Qty: 1 on 06/14/2020 by Bobby Gonzalez RNFA at [facility] Wire N/A: Sternum [employer] 11/17/2024 [id number] / / [id number] Description:1 WIRE USED Suture Sternotomy Kit - [id number] Implanted:Qty: 1 on 06/14/2020 by Bobby Gonzalez RNFA at [facility] Wire N/A: Sternum [employer] 08/17/2024 [id number] / / [id number] Description:6 WIRES USED Procedures Procedure Name Priority Date/Time Associated Diagnosis Comments LIPID PANEL Routine 06/09/2020 5:55 AM CDT from Last 3 Months or Most Recently Relevant to Health Maintenance Results * (ABNORMAL) LIPID PANEL (06/09/2020 5:55 AM CDT) CHOLESTEROL 193 <200 MG/DL 06/09/2020 6:37 AM CDT [facility] TRIGLYCERIDES 145 <150 MG/DL 06/09/2020 6:37 AM CDT [facility] HDL 34(L) >40.0 MG/DL 06/09/2020 6:37 AM CDT [facility] LDL (CALCULATED) 130(H) <100 MG/DL 06/09/2020 6:37 AM CDT [facility] NON HDL CHOLESTEROL 159(H) <130 MG/DL 06/09/2020 6:37 AM CDT [facility] CHOL/HDL RATIO 5.7(H) 0.0 - 4.5 06/09/2020 6:37 AM CDT [facility] VLDL CALCULATION 29 5 - 55 MG/DL 06/09/2020 6:37 AM CDT [facility] LIPID INTERPRETATION 06/09/2020 6:37 AM T [facility] Comment: [facility] CONCENSUS REPORT RECOMMENDATIONS: ADULT CHILD LOW RISK: CHOLESTEROL <200 <170 TRIGLYCERIDE <150 --- HDL >=60 --- LDL <100 <110 BORDERLINE: CHOLESTEROL 200-239 170-199 TRIGLYCERIDE 150-199 --- HDL 40-59 --- LDL 100-159 110-129 HIGH RISK: CHOLESTEROL >=240 >=200 TRIGLYCERIDE >=200 --- HDL <40 --- LDL >=160 >=130 06/09/2020 5:55 AM CDT [place] Louis PA-C LABORATORY Final Result [facility] [address] [place] [address], from Last 3 Months or Most Recently Relevant to Health Maintenance Insurance MEDICARE GENERIC - COMMERCIAL on file MEDICARE Advance Directives Documents on File Type Date Recorded Patient Electromechanisms Design Drafter Expl anation Advance Directives and Living Will 06/15/2020 7:09 AM 06-12-20 Signed POA f or Health Care * Full Code (Latest Code Status on File) Date Activated Date Inactivated Comments 06/19/2020 3:25 PM * Full Code Date Activated Date Inactivated Comments 06/08/2020 12:47 PM 06/18/2020 1:07 PM Care Teams Gluing Pressman Relationship Specialty Start Date End Date Jossie Brown MD [address] [place] [id number] PCP - General FAMILY PRACTICE 07/18/20 Clark Cruz MD [address] [address] Consulting Physician INTERVENTIONAL CARDIOLOGY 07/18/20
--- OUTSIDE RECORDS SUMMARY | 2025-02-15 16:45 | XMS_ITS | Referral Summary ---
Author Organization [facility] Address [address] [place] [address] Care Team Providers Care Senior Wind Turbine Technician Name Role Phone Kim Mendoza DPT Unavailable [phone] Tara Sanchez NP Primary Care Provider [phone] Encounters Date Type Department Care Team Description 02/14/2025 10:30 AM CDT Office Visit [facility] Cardiology [address] [place] [address] Martha Cooper MD Hx of [...] (07/28/2019): Added automatically from request for surgery [id number] Epididymoorchitis 03/13/2019 H/O: urethral stricture 02/24/2019 Overview (02/24/2019): Added automatically from request for surgery [id number] H/O urethral stricture 02/12/2019 Overview (02/12/2019): Added automatically from request for surgery [id number] Prostatitis 02/12/2019 Overview (02/12/2019): Added automatically from request for surgery [id number] Non-recurrent bilateral ingu inal hernia without obstruction [...] on file Legal Sex Male 6:54 PM 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 Gender Identity Not on file Sexual Orientation [...] Pain Care Plan Chronic Care Management No Sheryr Mcgregor, RN Note: Problem: Chronic Pain Goals: [...] Dyslipidemia PSA SCREEN Routine 10/12/2019 11:00 AM LATHMAKER Screening PSA (prostate specific antigen) from Last [...] Result * PSA screen (10/12/2019 11:00 AM LATHMAKER) PSA-Total 0.35 <=5.40 ng/mL BHAKTI GUZMANCH Comment: Interpretive Data AGE SEX REFERENCE INTERVAL 0 minutes-150 years Female None 0 minutes-49 years Male None 50-59 years Male 0-3.90 60-69 years Male 0-5.40 70-79 years Male 0-6.20 80-150 years Male 0-6.20 Current interpretive data last revised 2018. Testing performed by: [facility], [address] [place] [address]., [address] Blood specimen (specimen) 10/12/2019 11:00 AM LATHMAKER 10/12/2019 11:49 AM LATHMAKER Lorene Lyon NP LAB BLOOD ORDERABLES Final Result [facility] [address] [facility]. Department [place] [address] from Last 3 Months or Most Recently Relevant to Health Maintenance [place] [address] [place] [address] COMMERCIAL GENERIC MEDICARE COMMERCIAL GENERIC GROUP ADMINISTRATORS [place] [facility] MEDICARE O Advance Directives For more information, please contact: [phone] * Full Code (Latest Code Status on File) Date Activated Date Inactivated Comments 08/30/2019 5:59 PM 09/01/2019 3:52 PM * Full Code Date Activated Date Inactivated Comments 03/11/2019 12:12 PM 03/13/2019 6:12 PM * Full Code Date Activated Date Inactivated Comments 03/05/2019 4:31 PM 03/06/2019 4:04 PM Care Teams Senior Wind Turbine Technician Relationship Specialty Start Date End Date Tara Sanchez NP [address] [address] PCP - General Family Medicine 02/14/25 Kim Mendoza DPT [id number] [place] [address] Fellow Physical Therapy 05/08/18
--- OUTSIDE RECORDS SUMMARY | 2025-02-15 16:45 | XMS_ITS | Clinical Summary ---
Author Organization [facility] Address 1 [place] [address] Care Team Providers Care Hedis Analyst Name Role Phone Kim Mendoza DPT Unavailable [phone] Tara Sanchez NP Primary Care Provider [phone] Allergies Active Allergy Reactions Criticality Noted Date [...] (07/28/2019): Added automatically from request for surgery [id number] Epididymoorchitis 03/13/2019 H/O: urethral stricture 02/24/2019 Overview (02/24/2019): Added automatically from request for surgery [id number] H/O urethral stricture 02/12/2019 Overview (02/12/2019): Added automatically from request for surgery [id number] Prostatitis 02/12/2019 Overview (02/12/2019): Added automatically from request for surgery [id number] Non-recurrent bilateral ingu inal hernia without obstruction or gangrene 04/08/2018 Increased frequency of urination 10/29/2016 Encounters Date Type Department Care Team Description 02/14/2025 10:30 AM CDT Office Visit 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 Procedures Procedure Name Priority Date/Time Associated Diagnosis Comments POCT LIPID PANEL Routine 02/14/2025 12:0 2 PM CDT Dyslipidemia PSA SCREEN Routine 10/12/2019 11:00 AM TREASURER SAVINGS BANK Screening PSA (prostate specific antigen) from Last [...] Result * PSA screen (10/12/2019 11:00 AM TREASURER [employer]) PSA-Total 0.35 <=5.40 ng/mL BHAKTI CONNER Comment: Interpretive Data AGE SEX REFERENCE INTERVAL 0 minutes-150 years Female None 0 minutes-49 years Male None 50-59 years Male 0-3.90 60-69 years Male 0-5.40 70-79 years Male 0-6.20 80-150 years Male 0-6.20 Current interpretive data last revised 2018. Testing performed by: [facility] [address] [facility], [place]., [address] Blood specimen (specimen) 10/12/2019 11:00 AM TREASURER SAVINGS BANK 10/12/2019 11:49 AM TREASURER SAVINGS BANK Lorene Lyon NP LAB BLOOD ORDERABLES Final Result [facility] [address] [facility]. Department [place] [address] from Last 3 Months or Most Recently Relevant to [place] [address] COMMERCIAL GENERIC MEDICARE COMMERCIAL GENERIC GROUP ADMINIST[place] [address] [id number] [employer] MEDICARE HMO Advance Directives For more information, please contact: [phone] * Full Code (Latest Code Status on File) Date Activated Date Inactivated Comments 08/30/2019 5:59 PM 09/01/2019 3:52 PM * Full Code Date Activated Date Inactivated Comments 03/11/2019 12:12 PM 03/13/2019 6:12 PM * Full Code Date Activated Date Inactivated Comments 03/05/2019 4:31 PM 03/06/2019 4:04 PM Care Teams Hedis Analyst Relationship Specialty Start Date End Date Tara Sanchez NP [address] [address] [place] [address] PCP - General Family Medicine 02/14/25 Kim Mendoza DPT [address] [place] [address] Fellow Physical Therapy 05/08/18
--- OUTSIDE RECORDS SUMMARY | 2025-02-15 16:45 | XMS_ITS | Encounter Summary ---
Author Organization [facility] Address [address] [place] [address] Phone Care Team Providers Care Dials Inspector Name Role Phone Kim Mendoza DPT Unavailable [phone] Iglesia Harrell MD Primary Care Provide r Jossie Brown MD Primary Care Provider [phone] Tara Sanchez NP Primary Care Provider [phone] Encounter Details Date Type Department Care Team (Late st Contact Info) Description 05/03/2019 Telephone [facility] [address] 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 documented as of this encounter Visit Diagnoses Not on filedocumented in this encounter Care Teams Dials Inspector Relationship Specialty Start Date End Date Iglesia Harrell MD [address] [place] [address] PCP - General Emergency Medicine 09/21/18 11/29/19 Jossie Brown MD [address] [facility] [place] [address] PCP - General Family Medicine 11/30/19 02/13/25 Tara Sanchez NP [address] [address] PCP - General Family Medicine 02/14/25 Kim Mendoza DPT [address] [facility] [address] [place] [address] Fellow Physical Therapy 05/08/18 documented as of this encounter
--- OUTSIDE RECORDS SUMMARY | 2025-02-15 16:45 | XMS_ITS | Encounter Summary ---
Author Organization [facility] Healthcare Address [address] [place] [address] Care Team Providers Care Cans Vacuum Tester Name Role Phone Kim Mendoza DPT Unavailable [phone] Iglesia Harrell MD Primary Care Provide r Jossie Brown MD Primary Care Provider [phone] Tara Sanchez NP Primary Care Provider [phone] Encounter Details Date Type Department Care Team (Late st Contact Info) Description 03/08/2019 Documentation [facility] [address] [place] [address] Georgina Shaw RN Social History Tobacco Use Types Packs/Day Years Used Date Smoking Tobacco: Never Smokeless Tobacco: Never Alcohol Use Standard Drinks/Week Comments No 0 (1 standard drink = 0.6 oz pur e alcohol) Sex and Gender Information Value Date Recorded Sex Assigned at Not on file Legal Sex Male 6:54 PM LAST CLEANER Gender Identity Not on file Sexual Orientation [...] on stairs Contact your local community or [facility] for information on exercise, fall prevention programs, or options for improving home safety. documented as of this encounter Visit Diagnoses Not on filedocumented in this encounter Care Teams Cans Vacuum Tester Relationship Specialty Start Date End Date Iglesia Harrell MD [address] [place] [address] PCP - General Emergency Medicine 09/21/18 11/29/19 Jossie Brown MD [address] [facility] [place] [address] PCP - General Family Medicine 11/30/19 02/13/25 Tara Sanchez NP [address] [address] PCP - General Family Medicine 02/14/25 Kim Mendoza DPT [id number] [place] [address] Fellow Physical Therapy 05/08/18 documented as of this encounter
--- OUTSIDE RECORDS SUMMARY | 2025-02-15 16:45 | XMS_ITS | Clinical Summary ---
Author Organization [facility] Address [address] [place] [address] Phone Care Team Providers Care Interactive Project Manager Name Role Phone Unavailable Primary Care Provider [...] Comments Blood Pressure 138/70 09/29/2017 12:01 AM QUALITY CONTROL TESTER Pulse 84 09/29/2017 12:01 AM QUALITY CONTROL TESTER Temperature - - Respiratory Rate 18 09/29/2017 12:01 AM QUALITY CONTROL TESTER Oxygen Saturation - - Inhaled Oxygen Concentration - - Weight 83 kg (183 lb) 09/29/2017 12:01 AM QUALITY CONTROL TESTER Height 180.3 cm (5' 11 ) 09/29/2017 12:01 AM QUALITY CONTROL TESTER Body Mass Index 25.52 09/29/2017 12:01 AM QUALITY CONTROL TESTER Plan of Treatment Not on file
--- OUTSIDE RECORDS SUMMARY | 2025-02-15 16:45 | XMS_ITS | Encounter Summary ---
Author Organization [facility] Address [address] [place] [address] Phone Care Team Providers Care Prepared Foods Team Leader Name Role Phone Kim Mendoza DPT Unavailable [phone] Iglesia Harrell MD Primary Care Provide r Jossie Brown MD Primary Care Provider Tara Sanchez NP Primary Care Provider [phone] Encounter Details Date Type Department Care Team (Late st Contact Info) Description 07/28/2019 Telephone [facility] - [facility] Urology [address] 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 documented as of this encounter Visit Diagnoses Not on filedocumented in this encounter Care Teams Prepared Foods Team Leader Relationship Specialty Start Date End Date Iglesia Harrell MD [address] [place] [address] PCP - General Emergency Medicine 09/21/18 11/29/19 Jossie Brown MD [address] [facility] [place] [address] PCP - General Family Medicine 11/30/19 02/13/25 Tara Sanchez NP [address] [address] PCP - General Family Medicine 02/14/25 Kim Mendoza DPT [address] [facility] [address] [place] [address] Fellow Physical Therapy 05/08/18 documented as of this encounter
[2025-02-15 16:55] LABS: Hemoglobin A1C 5.8 % (<5.7)
== END 2025-02-15 15:15 | disposition home or self-care (01) ==
PROVIDERS: PCP Nurse Practitioner Family; Visit Provider Nurse Practitioner Family
DX: R82.71 Bacteriuria (principal); E78.5 Hyperlipidemia, unspecified; I10 Essential (primary) hypertension; Z12.5 Encounter for screening for malignant neoplasm of prostate; R73.09 Other abnormal glucose
CPT/HCPCS: 36415; 80053; 80061; 81001; 83036; 84153; 84443; 87086; 87186; G0103

== ENCOUNTER → 2025-07-19 11:33 | Outpatient (CLI) | payer MEDICARE, OTHER, SELFPAY ==
--- NOTE | ~2025-07-19 | XR_ITS ---
EXAMINATION: XR chest 2V 07/19/2025 11:45 INDICATION: Contact exposure to asbestos PROCEDURE: 2 view chest COMPARISON: 09/04/2017 FINDINGS: The lungs are clear. The cardiomediastinal silhouette is within normal limits. There are no pleural effusions. There is no pneumothorax suspected. IMPRESSION: 1: NO ACUTE CARDIOPULMONARY DISEASE. Reviewed, dictated and finalized at location O.
--- OUTSIDE RECORDS SUMMARY | 2025-07-19 11:59 | XMS_ITS | Encounter Summary ---
Author Organization [facility] Address [address] [place] [address] Phone Care Team Providers Care Tufting Creeler Name Role Phone Kim Mendoza DPT Unavailable [phone] Iglesia Harrell MD Primary Care Provide r Jossie Brown MD Primary Care Provider [phone] Tara Sanchez NP Primary Care Provider [phone] Encounter Details Date Type Department Care Team (Late st Contact Info) Description 07/28/2019 Telephone [place] [facility] - [facility] Medicine Urology [address] [facility] Advanced Medicine [address]th [place] [address] [place] [address] Mayito Sanchez Social History Tobacco Use Types Packs/Day Years Used Date Smoking Tobacco: Never Smokeless Tobacco: Never Alcohol Use Standard Drinks/Week Comments No 0 (1 standard drink = 0.6 oz pur e alcohol) Sex and Gender Information Value Date Recorded Sex Assigned at Not on file 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 documented as of this encounter Visit Diagnoses Not on filedocumented in this encounter Care Teams Tufting Creeler Relationship Specialty Start Date End Date Iglesia Harrell MD [address] [place] [address] PCP - General Emergency Medicine 09/21/18 11/29/19 Jossie Brown MD [address] [address] PCP - General Family Medicine 11/30/19 02/13/25 Tara Sanchez NP [address] [address] PCP - General Family Medicine 02/14/25 Kim Mendoza DPT [address] [facility] [address] [place] [address] Fellow Physical Therapy 05/08/18 documented as of this encounter
--- OUTSIDE RECORDS SUMMARY | 2025-07-19 11:59 | XMS_ITS | Clinical Summary ---
Author Organization [facility] Address [address] [place] [address] Phone Care Team Providers Care President Sales And Marketing Name Role Phone Unavailable Primary Care Provider Unavailabl e Medications amitriptyline (ELAVIL) 25 MG tablet 1 daily 0 10/14/2017 Active fluticasone (FLONASE) 50 MCG/ACT nasal spray 1 daily 0 10/14/2017 Active omeprazole (PriLOSEC) [address] capsule 1 daily 0 09/25/2017 Active oxybutynin (DITROPAN) 5 MG tablet 1qhs 0 10/14/2017 Active budesonide-formo terol (SYMBICORT) 160-4.5 MCG/ACT inhaler 2 puff bid 0 10/14/2017 Active temazepam (RESTORIL) 15 MG capsule 1 qhs prn 0 10/14/2017 Active montelukast (SINGULAIR) 10 MG tablet 1 daily 0 09/29/2017 Active albuterol HFA (PROAIR HFA) 108 (90 Base) MCG/ACT inhaler 2 puffs q4h prn 0 10/14/2017 Active umeclidinium (INCRUSE ELLIPTA) 62.5 MCG/INH inhalation 1 [...] at Not on file Legal Sex Male 9:09 AM [facility] Gender Identity Not on file Sexual Orientation Not on file Last Filed Vital Signs Vital Sign Reading Time Taken Comments Blood Pressure 138/70 09/29/2017 12:01 AM FINISHER [employer] Pulse 84 09/29/2017 12:01 AM FINISHER [employer] Temperature - - Respiratory Rate 18 09/29/2017 12:01 AM FINISHER [employer] Oxygen Saturation - - Inhaled Oxygen Concentration - - Weight 83 kg (183 lb) 09/29/2017 12:01 AM FINISHER [employer] Height 180.3 cm (5' 11) 09/29/2017 12:01 AM FINISHER [employer] Body Mass Index 25.52 09/29/2017 12:01 AM FINISHER [employer] Plan of Treatment Not on file
--- OUTSIDE RECORDS SUMMARY | 2025-07-19 11:59 | XMS_ITS | Encounter Summary ---
Author Organization [facility] Healthcare Address [address] [place] [address] Care Team Providers Care Moshgiach Name Role Phone Kim Mendoza DPT Unavailable [phone] Iglesia Harrell MD Primary Care Provide r Jossie Brown MD Primary Care Provider [phone] Traa Sanchez NP Primary Care Provider [phone] Encounter Details Date Type Department Care Team (Late st Contact Info) Description 03/08/2019 Documentation [facility] Case Management [address] [place] [address] Georgina Shaw RN Social History Tobacco Use Types Packs/Day Years Used Date Smoking Tobacco: Never Smokeless Tobacco: Never Alcohol Use Standard Drinks/Week Comments No 0 (1 standard drink = 0.6 oz pur e alcohol) Sex and Gender Information Value Date Recorded Sex Assigned at Not on file 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 Gender Identity Not on file Sexual Orientation [...] on filedocumented in this encounter Care Teams Moshgiach Relationship Specialty Start Date End Date Iglesia Harrell MD [address] [place] [address] PCP - General Emergency Medicine 09/21/18 11/29/19 Jossie Brown MD [address] [facility] [place] [address] PCP - General Family Medicine 11/30/19 02/13/25 Tara Sanchez NP [address] [address] PCP - General Family Medicine 02/14/25 Kim Mendoza DPT [address] [place] [address] Fellow Physical Therapy 05/08/18 documented as of this encounter
--- OUTSIDE RECORDS SUMMARY | 2025-07-19 11:59 | XMS_ITS | Clinical Summary ---
Author Organization [facility] Address [address] [place] [address] Care Team Providers Care American Studies Professor Name Role Phone Kim Mendoza DPT Unavailable [phone] Tara Sanchez NP Primary Care Provider [phone] Allergies Active Allergy Reactions Criticality Noted Date [...] (07/28/2019): Added automatically from request for surgery [id number] Epididymoorchitis 03/13/2019 H/O: urethral stricture 02/24/2019 Overview (02/24/2019): Added automatically from request for surgery [id number] H/O urethral stricture 02/12/2019 Overview (02/12/2019): Added automatically from request for surgery [id number] Prostatitis 02/12/2019 Overview (02/12/2019): Added automatically from request for surgery [id number] Non-recurrent bilateral ingu inal hernia without obstruction or gangrene 04/08/2018 Increased frequency of urination 10/29/2016 Immunizations Immunization Administration Dates Next Due Influenza, Unspecified 08/17/2019 Surgical History Surgery Date Site/Laterality Comments [place] TRURL ELECTROSURG RESCJ PROSTATE BLEED COMPLETE 11/17/2014 - 11/16/2015 Transurethral Resection Of Prostate (TURP) - (Added by JOELLE Conv) TRANSURETHRAL RESECTION OF PROSTATE 11/17/2016 - 11/16/2017 CARPAL TUNNEL RELEASE 11/17/1998 - 11/16/1999 Bilateral X2 KNEE ARTHROSCOPY X2 COLONOSCOPY Medical History Medical History Date Comments Personal history of other endocrine, nutritional and metabolic disease History of hypercholesterole kizzy - (Added by JOELLE Conv) Urinary frequency Prostatitis Inguinal hernia PONV (postoperative nausea a nd vomiting) BPH (benign prostatic hyperplasia) Prostatitis 02/12/2019 Added automatica lly from request for surgery [id number] Coronary artery disease Bradycardia Family History Medical [...] on file 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 Author CCM Chronic Pain Care Plan Chronic Care Management No Sherry Mcgregor, JESSE Note: Problem: Chronic Pain Goals: 1. Minimize [...] Procedure Name Priority Date/Time Associated Diagnosis Comments PSA SCREEN Routine 10/12/2019 11:00 AM ENVIRONMENTAL TECHNICIAN Screening PSA (prostate specific antigen) from Last 3 Months or Most Recently Relevant to Health Maintenance Results * PSA screen (10/12/2019 11:00 AM ENVIRONMENTAL TECHNICIAN) PSA-Total 0.35 <=5.40 ng/mL BHAKTI CONNER Comment: Interpretive Data AGE SEX REFERENCE INTERVAL 0 minutes-150 years Female None 0 minutes-49 years Male None 50-59 years Male 0-3.90 60-69 years Male 0-5.40 70-79 years Male 0-6.20 80-150 years Male 0-6.20 Current interpretive data last revised 2018. Testing performed by: [facility], [facility], [place]., [address] Blood specimen (specimen) 10/12/2019 11:00 AM ENVIRONMENTAL TECHNICIAN 10/12/2019 11:49 AM ENVIRONMENTAL TECHNICIAN us Lorene Lyon NP LAB BLOOD ORDERABLES Final Result [facility]AKTI [facility]LE[facility]. [facility] [address] [facility]. Department [place] [address] from Last 3 Months or Most Recently Relevant to Health Maintenance Insurance VICKIE Ramsay [id number] COMMERCIAL GENERIC MEDICARE [employer] [facility] MEDICARE O Advance Directives For more information, please contact: [phone] * Full Code (Latest Code Status on File) Date Activated Date Inactivated Comments 08/30/2019 5:59 PM 09/01/2019 3:52 PM * Full Code Date Activated Date Inactivated Comments 03/11/2019 12:12 PM 03/13/2019 6:12 PM * Full Code Date Activated Date Inactivated Comments 03/05/2019 4:31 PM 03/06/2019 4:04 PM Care Teams American Studies Professor Relationship Specialty Start Date End Date Tara Sanchez NP [address] [address] PCP - General Family Medicine 02/14/25 Kim Mendoza DPT [address] [facility] [address] [place] [address] Fellow Physical Therapy 05/08/18
--- OUTSIDE RECORDS SUMMARY | 2025-07-19 11:59 | XMS_ITS | Encounter Summary ---
Author Organization [facility] Address [address] [place] [address] Phone Care Team Providers Care Research Technician Name Role Phone Kim Mendoza DPT Unavailable [phone] Iglesia Harrell MD Primary Care Provide r Jossie Brown MD Primary Care Provider [phone] Tara Sanchez NP Primary Care Provider [phone] Encounter Details Date Type Department Care Team (Late st Contact Info) Description 05/03/2019 Telephone [facility] ([facility]) - 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 documented as of this encounter Visit Diagnoses Not on filedocumented in this encounter Care Teams Research Technician Relationship Specialty Start Date End Date Iglesia Harrell MD [address] [place] [address] PCP - General Emergency Medicine 09/21/18 11/29/19 Jossie Brown MD [address] [place] [address] PCP - General Family Medicine 11/30/19 02/13/25 Tara Sanchez NP [address] [address] PCP - General Family Medicine 02/14/25 Kim Mendoza DPT [address] [facility] [address] [place] [address] Fellow Physical Therapy 05/08/18 documented as of this encounter
--- OUTSIDE RECORDS SUMMARY | 2025-07-19 11:59 | XMS_ITS | Clinical Summary ---
Author Organization [facility] Address Critical access hospital[address] [place] [address] Care Team Providers Care Disability Specialist Name Role Phone Jossie Brown MD Primary Care Provider [phone] Clark Cruz MD Unavailable Allergies Active Allergy Reactions Criticality Noted Date [...] Date STEMI (ST elevation myocardi al infarction) ([facility]) 06/08/2020 STEMI involving right coronary artery ([facility]) 06/08/2020 Epididymoorchitis 03/13/2019 H/O urethral stricture 02/12/2019 Overview (06/08/2020): Added automatically from request for surgery [id number] Prostatitis 02/12/2019 Overview (06/08/2020): Added automatically from request for surgery [id number] Non-recurrent bilateral ingu inal hernia without obstruction [...] 11:53 AM CDT Height 180.3 cm (5' 11) 07/20/2020 11:53 AM CDT Body Mass Index 24.55 07/20/2020 11:53 AM CDT Plan of Treatment Health Maintenance Due Date Last Done Comments ASCVD Statin 1954 Colorectal Cancer Screening Colonoscopy (10 Years) 1954 Hepatitis C 1972 DTaP, Tdap and Td Vaccines ( 1 - Tdap) 1973 Pneumococcal Vaccine: 50+ Ye ars (1 of 2 - PCV) 1973 Zoster Vaccines (1 of 2) 2004 RSV Immunization or 60+ Years (1 - Risk 60-74 years 1-dose series) 2014 Annual Medicare Wellness Visit 2019 ASCVD LDL 06/09/2021 06/09/2020 COVID-19 Vaccine (1 - 2023-2 5 season) 2024 Meningococcal B Vaccine Aged Out No l onger eligible based on patient's age to complete this topic Meningococcal Vaccine Aged Out No lexie robel eligible based on patient's age to complete this topic RSV Immunizations Under 20 Months Aged Out No longer eligible based on patient's age to complete this topic Medical Devices Implanted Type Area Mat Packer Device Identifier Shelf Expiration Date Model / Serial / Lot Wire Sut 18in Myowr2 7;.5 [place]; Ccs-1 Mfil; Cnv - [id number] Implanted:Qty: 1 on 06/14/2020 by Bobby Gonzalez RNFA at [facility] [employer] Wire N/A: [employer] 11/17/2024 [id number] / / [id number] Description:1 WIRE USED Suture Sternotomy Kit - [id number] Implanted:Qty: 1 on 06/14/2020 by Bobby Gonzalez RNFA at [facility] [employer] Wire N/A: Sternum [employer] 08/17/2024 [id number] / / [id number] Description:6 WIRES USED Procedures Procedure Name Priority Date/Time Associated Diagnosis Comments LIPID PANEL Routine 06/09/2020 5:55 AM CDT from Last 3 Months or Most Recently Relevant to Health Maintenance Results * (ABNORMAL) LIPID PANEL (06/09/2020 5:55 AM CDT) CHOLESTEROL 193 <200 MG/DL 06/09/2020 6:37 AM CDT [facility] TRIGLYCERIDES 145 <150 MG/DL 06/09/2020 6:37 AM CDT [facility] HDL 34(L) >40.0 MG/DL 06/09/2020 6:37 AM CDT [facility] LDL (CALCULATED) 130(H) <100 MG/DL 06/09/2020 6:37 AM CDT [facility] NON HDL CHOLESTEROL 159(H) <130 MG/DL 06/09/2020 6:37 AM CDT [facility] CHOL/HDL RATIO 5.7(H) 0.0 - 4.5 06/09/2020 6:37 AM CDT [facility] VLDL CALCULATION 29 5 - 55 MG/DL 06/09/2020 6:37 AM CDT [facility] LIPID INTERPRETATION 06/09/2020 6:37 AM CDT [facility] Comment: [facility] CONCENSUS REPORT RECOMMENDATIONS: ADULT CHILD LOW RISK: CHOLESTEROL <200 <170 TRIGLYCERIDE <150 --- HDL >=60 --- LDL <100 <110 BORDERLINE: CHOLESTEROL 200-239 170-199 TRIGLYCERIDE 150-199 --- HDL 40-59 --- LDL 100-159 110-129 HIGH RISK: CHOLESTEROL >=240 >=200 TRIGLYCERIDE >=200 --- HDL <40 --- LDL >=160 >=130 06/09/2020 5:55 AM CDT us [place] Louis PA-C LABORATORY Final Result [facility] [address] [place] [address], from Last 3 Months or Most Recently Relevant to Health Maintenance Insurance MEDICARE GENERIC - COMMERCIAL on file MEDICARE Advance Directives Documents on File Type Date 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
== END ==
LOC: EXPTRAD 11:36
PROVIDERS: PCP Nurse Practitioner Family; Visit Provider Nurse Practitioner Family
DX: Z77.090 Contact with and (suspected) exposure to asbestos (principal)
CPT/HCPCS: 71046